=== PATIENT | female | born 1975 | race Caucasian/White ===

== ENCOUNTER → 2016-11-20 16:08 | Outpatient (CLI) | payer SELFPAY | END | disposition home or self-care (01) | LOC: D.MAMMO 09:30 | DX: N63 Unspecified lump in breast (principal) ==

== ENCOUNTER → 2020-08-01 15:03 | Outpatient (CLI) | payer BC | END | disposition home or self-care (01) | LOC: D.LAB 07-30 16:58 | PROVIDERS: ATTEND Obstetrics & Gynecology | DX: N93.9 Abnormal uterine and vaginal bleeding, unspecified (principal) ==

== ENCOUNTER 2020-08-18 08:00 | Outpatient (CLI) | payer BC ==
[2020-08-03 07:16] LABS: FOLLICLE STIMULATING HORMONE 5.1 mIU/mL (()); LUTEINIZING HORMONE 9.4 mIU/mL (()); PROLACTIN 13.1 ng/mL (4.8-23.3)
[2020-08-06 12:11] LABS: TESTOSTERONE - FREE 0.8 pg/mL (0.0-4.2); TESTOSTERONE - SERUM 4 ng/dL (4-50)
== END 2020-08-18 08:01 | disposition home or self-care (01) ==
LOC: D.MAMMO 08:00
PROVIDERS: ATTEND Obstetrics & Gynecology
DX: Z12.31 Encounter for screening mammogram for malignant neoplasm of breast (principal)